=== PATIENT | female | born 1940 | race Asian ===

== ENCOUNTER 2019-05-01 09:37 | Emergency (ER) | payer SELFPAY ==
[~2019-05-01] VITALS: Ht 162.6 cm; Wt 68.0 kg
[2019-05-01 09:40] VITALS: Ht 162.6 cm; Wt 68.0 kg
[2019-05-01 10:14] LABS: BASOPHIL % 1.8 % (0-2); PLATELET COUNT 224 x10^3mcL (130-400)
[2019-05-01 10:27] LABS: CALCIUM 8.6 mg/dL (8.5-10.1); CARBON DIOXIDE 27.3 mmol/L (21-32); CHLORIDE SERUM 106 mmol/L (98-107); CREATININE SERUM 0.8 mg/dL (0.6-1.0); GLUCOSE SERUM 121 mg/dL (74-106); POTASSIUM SERUM 4.1 mmol/L (3.5-5.1); SODIUM SERUM 141 mmol/L (136-145)
[2019-05-01 10:29] VITALS: BP 120/73
[2019-05-01 10:31] LABS: ALBUMIN 3.7 g/dL (3.4-5.0); ALKALINE PHOSPHATASE 73 U/L (46-116); ALT/SGPT 26 U/L (14-59); AST/SGOT 25 U/L (15-37); BILIRUBIN TOTAL 0.37 mg/dL (0.20-1.00); TOTAL PROTEIN, SERUM 7.8 g/dL (6.4-8.2)
== END 2019-05-01 10:20 | disposition short-term general hospital (02) ==
LOC: ED 09:37
PROVIDERS: Emergency Medicine
DX: S06.9X9A Unspecified intracranial injury with loss of consciousness of unspecified duration, initial encounter (principal); W18.30XA Fall on same level, unspecified, initial encounter; Y93.89 Activity, other specified; Y92.89 Other specified places as the place of occurrence of the external cause; Y99.8 Other external cause status
CPT/HCPCS: 36415